=== PATIENT | male | born 1990 | race Two or more races ===

== ENCOUNTER 2019-12-19 17:02 | Emergency (ER) | payer MEDICAID ==
[~2019-12-19] VITALS: Ht 172.7 cm; Wt 90.0 kg
[2019-12-19] MEDS ORDERED: KETOROLAC 30MG/ML VIAL IM ONE (19:00)
[2019-12-19 20:16] VITALS: BP 124/76
== END 2019-12-19 20:17 | disposition home or self-care (01) ==
LOC: ER 17:02
DX: S89.82XA Other specified injuries of left lower leg, initial encounter (principal); X58.XXXA Exposure to other specified factors, initial encounter; Y93.89 Activity, other specified; Y92.89 Other specified places as the place of occurrence of the external cause; Y99.8 Other external cause status
CPT/HCPCS: 73562; 96372; 99283; J1885; L1830